=== PATIENT | female | born 1975 | race African-American/Black ===

== ENCOUNTER 2016-10-22 16:13 | Emergency (ER) | payer OTHER ==
[~2016-10-22] VITALS: Ht 154.9 cm; Wt 78.0 kg
[~2016-10-22 16:13] MED LIST: APAP500 PO; CIPROFLOXACIN500 M1 PO; IBUPROFEN 600600 M1 PO; MUCINEX TA600 MG/TA2 PO; NAPROSYN500 MG PO; NOHOMEMEDICATIONS; NORCO 5-325 TA1 EACH PO; PHENERGAN 25 MG25 M1 PO; PROMS25 WY RECTAL; PROVENTIL HFA6.7 G1 INH; VIIBRYD10 MG PO; ZOFRAN4 MG PO; ZPAK PO
[2016-10-22 16:15] VITALS: BP 129/70
== END 2016-10-22 17:00 | disposition home or self-care (01) ==
LOC: ER 16:13
DX: S61.132A Puncture wound without foreign body of left thumb with damage to nail, initial encounter (principal); F10.99 Alcohol use, unspecified with unspecified alcohol-induced disorder; W22.8XXA Striking against or struck by other objects, initial encounter; Y93.89 Activity, other specified; Y92.89 Other specified places as the place of occurrence of the external cause; Y99.8 Other external cause status

== ENCOUNTER 2017-02-23 18:01 | Emergency (ER) | payer OTHER ==
[~2017-02-23] VITALS: Ht 152.4 cm; Wt 81.7 kg
--- NOTE | ~2017-02-23 | EKG ---
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: JOURDAN : 1975 Requested By: Debbie Lopez Order Number: [id number] MD: Frantz Noriega Measurements Intervals [place] Rate: 78 P: 4 DE: 136 QRS: -11 QRSD: 89 T: -10 QT: 407 QTc: 464 Interpretive Statements Sinus or ectopic atrial rhythm LVH by voltage Borderline T abnormalities Compared to ECG 05/16/2016 20:44:51 No significant change was found Electronically Signed On 02-24-2017 9:56:08 CDT by Frantz Noriega [email or web address] <ELECTRONICALLY SIGNED> By: Frantz Noriega MD, [facility] 02/24/17 0956 03 03 Frantz Noriega MD, [facility] /EPI
[2017-02-23 18:52] LABS: ABSOLUTE NEUTROPHILS 5.3 thou/uL (1.4-8.2); BASOPHILS 0.5 % (0.0-2.0); EOSINOPHILS 3.7 % (0.0-3.0); HEMATOCRIT 30.5 % (37.0-47.0); HEMOGLOBIN 9.9 gm/dL (12.0-15.0); LYMPHOCYTES 13.9 % (24.0-44.0); MCH 23.6 pg (26.0-34.0); MCHC 32.5 g/dL (28.0-37.0); MCV 72.6 fL (80.0-100.0); MONOCYTES 6.9 % (1.0-8.0); PLATELET COUNT 294 thou/uL (150-400); RDW 18.1 % (10.5-14.5)
[2017-02-23 18:54] LABS: MANUAL DIFF NO
[2017-02-23 19:02] LABS: ANION GAP 8 mmol/L (7-16); BUN 10 mg/dL (7-18); CALCIUM 9.1 mg/dL (8.5-10.1); CHLORIDE 109 mmol/L (98-107); CO2 26 mmol/L (21-32); GLUCOSE 88 mg/dL (74-106); POTASSIUM 3.8 mmol/L (3.5-5.1); SODIUM 143 mmol/L (136-145)
[2017-02-23 19:11] LABS: TROPONIN-I < 0.04 ng/mL (<0.04-0.07)
[2017-02-23 19:27] LABS: ANISOCYTOSIS 2+; HYPOCHROMASIA 2+; MICROCYTES 1+
[2017-02-23] MEDS ORDERED: VALIUM2 MG PO (21:27)
[2017-02-23 21:42] VITALS: BP 123/78
== END 2017-02-23 21:41 | disposition home or self-care (01) ==
LOC: ER 18:01
PROVIDERS: Emergency Medicine
DX: M62.838 Other muscle spasm (principal); R07.9 Chest pain, unspecified; D57.3 Sickle-cell trait; F10.99 Alcohol use, unspecified with unspecified alcohol-induced disorder

== ENCOUNTER 2017-12-26 16:48 | Emergency (ER) | payer OTHER ==
[~2017-12-26] VITALS: Ht 152.4 cm; Wt 86.2 kg
--- NOTE | ~2017-12-26 | EKG ---
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1975 Requested By: Richard Ly Order Number: [id number] MD: Dameon Ruiz Measurements Intervals [place] Rate: 81 P: -80 CT: 103 QRS: -12 QRSD: 62 T: -11 QT: 448 QTc: 520 Interpretive Statements Sinus or ectopic atrial rhythm Short CT interval Borderline T abnormalities, diffuse leads Compared to ECG 02/23/2017 18:04:[address] interval now present Left ventricular hypertrophy no longer present T-wave abnormality still present Electronically Signed On 12-26-2017 20:41:30 CDT by Dameon Ruiz [email or web address] <ELECTRONICALLY SIGNED> By: Dameon Ruiz MD 12/26/17 2041 1758 1758 Dameon Ruiz MD /EPI
[~2017-12-26 16:48] MED LIST changes: +VALIUM2 MG PO
[2017-12-26] MEDS ORDERED: HYDROCODONE-ACE15 ML PO (18:24)
[2017-12-26 18:32] VITALS: BP 115/64
== END 2017-12-26 18:34 | disposition home or self-care (01) ==
LOC: ER 16:48
DX: M25.511 Pain in right shoulder (principal)

== ENCOUNTER 2019-01-07 21:29 | Emergency (ER) | payer OTHER ==
[~2019-01-07] VITALS: Ht 152.4 cm; Wt 80.7 kg
[~2019-01-07 21:29] MED LIST changes: +HYDROCODONE-ACE15 ML PO
[2019-01-07] MEDS ORDERED: MAGIC MOUTHWASH SW&SWALLOW (22:55)
[2019-01-07] MEDS ORDERED: PREDNISONE 20 M20 MG PO (22:59)
[2019-01-07 23:23] VITALS: BP 141/48
== END 2019-01-07 23:23 | disposition home or self-care (01) ==
LOC: ER 21:29
DX: R13.13 Dysphagia, pharyngeal phase (principal)

== ENCOUNTER 2019-01-09 09:25 | Emergency (ER) | payer OTHER ==
[~2019-01-09] VITALS: Ht 152.4 cm; Wt 78.9 kg
[~2019-01-09 09:25] MED LIST changes: +MAGIC MOUTHWASH SW&SWALLOW; +PREDNISONE 20 M20 MG PO
[2019-01-09 10:07] LABS: ABSOLUTE NEUTROPHILS 4.4 thou/uL (1.4-8.2); BASOPHILS 0.5 % (0.0-2.0); EOSINOPHILS 1.1 % (0.0-3.0); HEMATOCRIT 24.1 % (37.0-47.0); HEMOGLOBIN 7.7 gm/dL (12.0-15.0); MCHC 31.8 g/dL (28.0-37.0); MONOCYTES 6.1 % (1.0-8.0); PLATELET COUNT 344 thou/uL (150-400); POLYS 56.3 % (36.0-66.0); RBC 3.49 mil/uL (4.20-5.00); RDW 19.7 % (10.5-14.5); WBC 7.8 thou/uL (4.0-11.0)
[2019-01-09 10:11] LABS: CALCIUM 8.1 mg/dL (8.5-10.1); CREATININE 0.8 mg/dL (0.6-1.0); POTASSIUM 3.2 mmol/L (3.5-5.1)
[2019-01-09 10:17] LABS: ALBUMIN 3.4 g/dL (3.4-5.0); TOTAL BILIRUBIN 0.1 mg/dL (<0.1-1.0); TOTAL PROTEIN 7.2 g/dL (6.4-8.2)
[2019-01-09 10:54] LABS: ANISOCYTOSIS 2+; MICROCYTES 1+
[2019-01-09 10:55] LABS: MACROCYTES SLIGHT; POLYCHROMASIA SLIGHT; TARGET CELLS OCCASIONAL
[2019-01-09 12:00] LABS: URINE BILIRUBIN NEGATIVE (Negative); URINE BLOOD 3+ (Negative); URINE CLARITY CLEAR; URINE COLOR YELLOW; URINE GLUCOSE-RANDOM* NEGATIVE (Negative); URINE KETONES NEGATIVE (Negative); URINE NITRITE-REFLEX NEGATIVE (Negative); URINE PROTEIN (DIPSTICK) NEGATIVE (Negative); URINE SPECIFIC GRAVITY <= 1.005 (1.005-1.035); URINE UROBILINOGEN 0.2 E.U./dl (0.2-1.0)
[2019-01-09 12:01] LABS: URINE LEUKOCYTES-REFLEX 1+ (Negative)
[2019-01-09 12:08] LABS: BACTERIA-REFLEX 1-9 Few /HPF (None Seen); CASTS None Seen /LPF (None Seen); CRYSTALS None Seen /LPF (None Seen); SQUAMOUS 0-3 Few /LPF (0-3); URINE RBC 3-10 Few /HPF (0-2); URINE WBC-REFLEX 0-5 Rare /HPF (0-5)
[2019-01-09 15:00] VITALS: BP 110/74
== END 2019-01-09 15:00 | disposition short-term general hospital (02) ==
LOC: ER 09:25
PROVIDERS: Emergency Medicine
DX: N85.8 Other specified noninflammatory disorders of uterus (principal); G89.18 Other acute postprocedural pain; R10.2 Pelvic and perineal pain; Z86.2 Personal history of diseases of the blood and blood-forming organs and certain disorders involving the immune mechanism; Z98.51 Tubal ligation status

== ENCOUNTER 2019-08-30 12:42 | Emergency (ER) | payer OTHER ==
[~2019-08-30] VITALS: Ht 152.4 cm; Wt 77.1 kg
[2019-08-30] MEDS ORDERED: NAPROSYN500 MG PO (13:56)
[2019-08-30 14:11] VITALS: BP 134/88
== END 2019-08-30 14:11 | disposition home or self-care (01) ==
LOC: ER 12:42
DX: M25.532 Pain in left wrist (principal); Z86.2 Personal history of diseases of the blood and blood-forming organs and certain disorders involving the immune mechanism; Z98.51 Tubal ligation status; V89.2XXA Person injured in unspecified motor-vehicle accident, traffic, initial encounter; Y93.89 Activity, other specified; Y92.89 Other specified places as the place of occurrence of the external cause; Y99.8 Other external cause status

== ENCOUNTER 2020-03-16 21:48 | Emergency (ER) | payer OTHER ==
[~2020-03-16] VITALS: Ht 162.6 cm; Wt 81.2 kg
[2020-03-16 22:31] LABS: URINE BILIRUBIN NEGATIVE (Negative); URINE BLOOD NEGATIVE (Negative); URINE CLARITY CLEAR; URINE COLOR YELLOW; URINE GLUCOSE-RANDOM* NEGATIVE (Negative); URINE KETONES NEGATIVE (Negative); URINE LEUKOCYTES-REFLEX NEGATIVE (Negative); URINE NITRITE-REFLEX NEGATIVE (Negative); URINE PROTEIN (DIPSTICK) NEGATIVE (Negative)
[2020-03-16 22:52] LABS: ABSOLUTE NEUTROPHILS 3.7 thou/uL (1.4-8.2); BASOPHILS 0.8 % (0.0-2.0); EOSINOPHILS 3.8 % (0.0-3.0); HEMATOCRIT 38.6 % (37.0-47.0); HEMOGLOBIN 12.9 gm/dL (12.0-15.0); LYMPHOCYTES 25.4 % (24.0-44.0); MCH 28.9 pg (26.0-34.0); MCHC 33.3 g/dL (28.0-37.0); MCV 86.7 fL (80.0-100.0); MONOCYTES 8.6 % (1.0-8.0); PLATELET COUNT 310 thou/uL (150-400); POLYS 61.4 % (36.0-66.0); RBC 4.45 mil/uL (4.20-5.00); RDW 15.1 % (10.5-14.5)
[2020-03-16 23:09] LABS: CALCIUM 8.6 mg/dL (8.5-10.1); CREATININE 0.9 mg/dL (0.6-1.0); POTASSIUM 3.7 mmol/L (3.5-5.1)
[2020-03-16 23:14] LABS: ALBUMIN 3.9 g/dL (3.4-5.0); TOTAL BILIRUBIN 0.4 mg/dL (0.2-1.0); TOTAL PROTEIN 7.4 g/dL (6.4-8.2)
[2020-03-16] MEDS ORDERED: ZOFRAN ODT4 MG PO (23:51)
[2020-03-16 23:56] VITALS: BP 141/76
== END 2020-03-17 00:01 | disposition home or self-care (01) ==
LOC: ER 21:48
PROVIDERS: Emergency Medicine
DX: D25.9 Leiomyoma of uterus, unspecified (principal); R10.31 Right lower quadrant pain; Z98.51 Tubal ligation status

== ENCOUNTER 2020-12-06 15:49 | Emergency (ER) | payer OTHER ==
[~2020-12-06] VITALS: Ht 152.4 cm; Wt 79.4 kg
[~2020-12-06 15:49] MED LIST changes: +ZOFRAN ODT4 MG PO
[2020-12-06 16:42] LABS: ABSOLUTE NEUTROPHILS 4.4 thou/uL (1.4-8.2); BASOPHILS 0.7 % (0.0-2.0); EOSINOPHILS 3.8 % (0.0-3.0); HEMATOCRIT 35.6 % (37.0-47.0); LYMPHOCYTES 18.8 % (24.0-44.0); MCH 28.9 pg (26.0-34.0); MCHC 33.8 g/dL (28.0-37.0); MCV 85.6 fL (80.0-100.0); MONOCYTES 7.8 % (1.0-8.0); PLATELET COUNT 274 thou/uL (150-400); POLYS 68.9 % (36.0-66.0); RBC 4.16 mil/uL (4.20-5.00); RDW 15.3 % (10.5-14.5); WBC 6.4 thou/uL (4.0-11.0)
[2020-12-06 16:51] LABS: ANION GAP 11 mmol/L (7-16); BUN 11 mg/dL (7-18); CALCIUM 8.8 mg/dL (8.5-10.1); CHLORIDE 108 mmol/L (98-107); CO2 23 mmol/L (21-32); CREATININE 0.7 mg/dL (0.6-1.0); GLUCOSE 89 mg/dL (74-106); POTASSIUM 5.5 mmol/L (3.5-5.1); SODIUM 142 mmol/L (136-145)
[2020-12-06 17:01] LABS: ALBUMIN 3.5 g/dL (3.4-5.0); SGOT 33 U/L (15-37); SGPT 27 U/L (14-59); TOTAL BILIRUBIN 0.6 mg/dL (0.2-1.0); TOTAL PROTEIN 7.6 g/dL (6.4-8.2); TROPONIN-I <0.06 ng/mL (<0.06)
[2020-12-06] MEDS ORDERED: METHOCARBAMOL500 M2 PO (20:06)
[2020-12-06] MEDS ORDERED: ROXICODONE5 M2 PO (20:06)
[2020-12-06 20:19] VITALS: BP 148/66
--- NOTE | 2020-12-07 07:13 | EKG ---
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 : 1975 Requested By: Deanna Jesus Order Number: [id number] MD: Antonio Macias Measurements Intervals [place] Rate: 74 P: -13 TX: 132 QRS: -19 QRSD: 77 T: 15 QT: 390 QTc: 433 Interpretive Statements Sinus rhythm Borderline left axis deviation Anterior infarct, old Compared to ECG 12/26/2017 17:58:34 Myocardial infarct finding now present Ectopic atrial rhythm no longer present Short [place] interval no longer present T-wave abnormality no longer present Electronically Signed On 12-07-2020 7:13:40 CDT by Antonio Macias [email or web address] <ELECTRONICALLY SIGNED> By: Antonio Macias MD, [facility] 12/07/20 0713 1557 1557 Antonio Macias MD, [facility] /EPI
[2020-12-08] MEDS ORDERED: ROXICODONE5 M2 PO (12:34)
== END 2020-12-06 20:27 | disposition home or self-care (01) ==
LOC: ER 15:49
PROVIDERS: Nurse Practitioner Family
DX: R07.89 Other chest pain (principal); D25.9 Leiomyoma of uterus, unspecified; R53.1 Weakness; R10.9 Unspecified abdominal pain; H57.89 Other specified disorders of eye and adnexa; N93.8 Other specified abnormal uterine and vaginal bleeding; R30.9 Painful micturition, unspecified; Z98.51 Tubal ligation status

== ENCOUNTER 2021-01-31 15:37 | Emergency (ER) | payer OTHER ==
[~2021-01-31] VITALS: Ht 152.4 cm; Wt 81.7 kg
[~2021-01-31 15:37] MED LIST changes: +METHOCARBAMOL500 M2 PO; +ROXICODONE5 M2 PO
[2021-01-31 18:32] LABS: ABSOLUTE NEUTROPHILS 3.2 thou/uL (1.4-8.2); BASOPHILS 0.4 % (0.0-2.0); EOSINOPHILS 3.8 % (0.0-3.0); HEMATOCRIT 35.6 % (37.0-47.0); HEMOGLOBIN 11.8 gm/dL (12.0-15.0); LYMPHOCYTES 25.2 % (24.0-44.0); MCH 28.5 pg (26.0-34.0); MCHC 33.2 g/dL (28.0-37.0); MONOCYTES 7.8 % (1.0-8.0); PLATELET COUNT 255 thou/uL (150-400); POLYS 62.8 % (36.0-66.0); RBC 4.14 mil/uL (4.20-5.00); RDW 15.5 % (10.5-14.5); WBC 5.1 thou/uL (4.0-11.0)
[2021-01-31 18:39] LABS: ANION GAP 9 mmol/L (7-16); BUN 13 mg/dL (7-18); CALCIUM 8.7 mg/dL (8.5-10.1); CHLORIDE 106 mmol/L (98-107); CO2 27 mmol/L (21-32); CREATININE 0.8 mg/dL (0.6-1.0); GLUCOSE 91 mg/dL (74-106); POTASSIUM 3.9 mmol/L (3.5-5.1); SODIUM 142 mmol/L (136-145)
[2021-01-31 18:49] LABS: ALBUMIN 3.6 g/dL (3.4-5.0); SGOT 14 U/L (15-37); SGPT 22 U/L (14-59); TOTAL BILIRUBIN 0.4 mg/dL (0.2-1.0); TROPONIN-I <0.06 ng/mL (<0.06)
[2021-01-31] MEDS ORDERED: VALIUM2 MG PO (20:58)
[2021-01-31] MEDS ORDERED: IBUPROFEN 800800 MG PO (20:58)
[2021-01-31 21:25] VITALS: BP 152/90
--- NOTE | 2021-02-01 07:16 | EKG ---
[place] [address] [employer] [place] [address] ELECTROCARDIOGRAM REPORT Name: SAM TELLES DONALD Room #: [facility]#: [id number] Admission: 01/31/21 Attend Phys: Discharge: 01/31/21 Date of : 75 Report #: [id number] [facility] ED Test Date: 2021-01-31 Test Time: 18:42:27 Pat Name: SAM TELLES Department: Room: Gender: F Senior Svp: JOSE : 1975 Requested By: Sesar Gibbs Order Number: [id number] MD: Antonio Macias Measurements Intervals [place] Rate: 63 P: 12 GA: 145 QRS: -9 QRSD: 88 T: 0 QT: 455 QTc: 466 Interpretive Statements Sinus rhythm Low voltage, precordial leads Borderline T abnormalities, inferior leads Baseline wander in lead(s) II,III,aVF Compared to ECG 12/06/2020 15:57:56 Low QRS voltage now present T-wave abnormality now present Myocardial infarct finding no longer present Electronically Signed On 02-01-2021 7:15:50 CDT by Antonio Macias [email or web address] <ELECTRONICALLY SIGNED> By: Antonio Macias MD, [facility] 02/01/21714 41 41 Antonio Macias MD, [facility] /EPI
== END 2021-01-31 21:27 | disposition home or self-care (01) ==
LOC: ER 15:37
PROVIDERS: Emergency Medicine
DX: M54.89 Other dorsalgia (principal); M54.2 Cervicalgia; F12.90 Cannabis use, unspecified, uncomplicated

== ENCOUNTER 2021-07-02 22:43 | Emergency (ER) | payer OTHER ==
[~2021-07-02] VITALS: Ht 152.4 cm; Wt 83.9 kg
[~2021-07-02 22:43] MED LIST changes: +IBUPROFEN 800800 MG PO
[2021-07-03] MEDS ORDERED: MELOXICAM15 MG PO (04:44)
[2021-07-03 05:18] VITALS: BP 135/67
== END 2021-07-03 05:22 | disposition home or self-care (01) ==
LOC: ER 22:43
DX: S93.492A Sprain of other ligament of left ankle, initial encounter (principal); Z98.51 Tubal ligation status; Z86.73 Personal history of transient ischemic attack (TIA), and cerebral infarction without residual deficits; W01.0XXA Fall on same level from slipping, tripping and stumbling without subsequent striking against object, initial encounter; Y93.89 Activity, other specified; Y92.89 Other specified places as the place of occurrence of the external cause; Y99.8 Other external cause status

== ENCOUNTER 2021-07-23 19:03 | Emergency (ER) | payer OTHER ==
[~2021-07-23] VITALS: Ht 152.4 cm; Wt 83.9 kg
[~2021-07-23 19:03] MED LIST changes: +MELOXICAM15 MG PO
[2021-07-23 19:05] VITALS: BP 138/72
[2021-07-23] MEDS ORDERED: NOHOMEMEDICATIONS (19:16)
[2021-07-23 21:23] LABS: URINE BILIRUBIN NEGATIVE (Negative); URINE BLOOD 3+ (Negative); URINE CLARITY CLEAR; URINE COLOR YELLOW; URINE GLUCOSE-RANDOM* NEGATIVE (Negative); URINE KETONES NEGATIVE (Negative); URINE LEUKOCYTES-REFLEX NEGATIVE (Negative); URINE NITRITE-REFLEX NEGATIVE (Negative); URINE PROTEIN (DIPSTICK) TRACE (Negative); URINE UROBILINOGEN 0.2 E.U./dl (0.2-1.0)
[2021-07-23] MEDS ORDERED: ZOFRAN ODT4 MG PO (21:34)
[2021-07-23] MEDS ORDERED: IBU600 MG PO (21:34)
[2021-07-23 21:41] LABS: BACTERIA-REFLEX None Seen /HPF (None Seen); CASTS None Seen /LPF (None Seen); CRYSTALS None Seen /LPF (None Seen); SQUAMOUS 0-3 Few /LPF (0-3); URINE RBC >20 Many /HPF (NONE SEEN); URINE WBC-REFLEX None Seen /HPF (0-5)
--- NOTE | 2021-07-24 10:31 | EKG ---
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: GELACIO LUNDBERG : 1975 Requested By: Ly Carson Order Number: [id number] MD: Antonio Macias Measurements Intervals [place] Rate: 83 P: -30 VT: 146 QRS: -9 QRSD: 91 T: 32 QT: 328 QTc: 386 Interpretive Statements Sinus rhythm Probable anteroseptal infarct, old Compared to ECG 01/31/2021 18:42:27 Myocardial infarct finding now present T-wave abnormality no longer present Electronically Signed On 07-24-2021 10:31:21 SUPERVISOR LENS GENERATING by Antonio Macias [email or web address] <ELECTRONICALLY SIGNED> By: Antonio Macias MD, [facility] 07/24/21 1031 190 01 Antonio Macias MD, [facility] /EPI
== END 2021-07-23 22:18 | disposition home or self-care (01) ==
LOC: ER 19:03
PROVIDERS: Physician Assistant
DX: R00.2 Palpitations (principal); N93.8 Other specified abnormal uterine and vaginal bleeding; Z98.51 Tubal ligation status; Z86.73 Personal history of transient ischemic attack (TIA), and cerebral infarction without residual deficits